=== PATIENT | male | born 1995 | race Hispanic/Latino ===

== ENCOUNTER 2018-02-16 00:14 | Emergency (ER) | payer SELFPAY ==
[~2018-02-16] VITALS: Ht 182.9 cm; Wt 163.3 kg
== END 2018-02-16 01:05 | disposition left against medical advice (07) ==
LOC: ER 00:14
DX: R42 Dizziness and giddiness (principal)

== ENCOUNTER 2021-06-26 15:55 | Emergency (ER) | payer SELFPAY ==
[~2021-06-26] VITALS: Ht 182.9 cm; Wt 163.3 kg
[2021-06-26] MEDS ORDERED: TESSALON PERLE100 MG PO (18:15)
[2021-06-26] MEDS ORDERED: PROAIR HFA INH8.5 GM PO (18:15)
== END 2021-06-26 18:31 | disposition home or self-care (01) ==
LOC: ER 16:02
DX: U07.1 COVID-19 (principal); R50.9 Fever, unspecified; R06.02 Shortness of breath
CPT/HCPCS: 99283; U0002